=== PATIENT | male | born 1970 | race African-American/Black ===

== ENCOUNTER 2023-01-13 03:01 | Emergency (ER) | payer OTHER, SELFPAY ==
[~2023-01-13] VITALS: Ht 172.7 cm; Wt 83.2 kg
[~2023-01-13 03:01] MED LIST: NO MEDS
[2023-01-13 03:05] VITALS: TEMP 98
[2023-01-13] MEDS ORDERED: KETOROLAC TROMETHAMINE 60 MG/2 ML VIAL IM ONE (03:30)
[2023-01-13] MEDS ORDERED: HYDROCODONE/ACETAMINOPHEN 5-325 MG TABLET PO ONE (03:30)
[2023-01-13] MEDS ORDERED: BACITRACIN 0.9 GM PACKET OINTMENT TP ONE (03:30)
[2023-01-13 03:38] VITALS: BP 117/66; PULSE 88; RESP 20
[2023-01-13] MEDS ORDERED: IBUP-1554 PO (04:35)
[2023-01-13] MEDS ORDERED: BACI28.410 TP (04:35)
[2023-01-13] MEDS ORDERED: HYDR-4072 PO (04:35)
== END 2023-01-13 05:16 | disposition home or self-care (01) ==
LOC: EMS 03:04
DX: T23.232A Burn of second degree of multiple left fingers (nail), not including thumb, initial encounter (principal); T21.23XA Burn of second degree of upper back, initial encounter; T21.21XA Burn of second degree of chest wall, initial encounter; F17.210 Nicotine dependence, cigarettes, uncomplicated; Z98.890 Other specified postprocedural states
CPT/HCPCS: 99283; 16000; 96372; J1885

== ENCOUNTER 2023-01-23 06:38 | Emergency (ER) | payer OTHER ==
[~2023-01-23] VITALS: Ht 172.7 cm; Wt 83.0 kg
[~2023-01-23 06:38] MED LIST changes: +BACI28.410 TP; +HYDR-4072 PO; +IBUP-1554 PO
[2023-01-23 06:58] VITALS: TEMP 97.5
[2023-01-23 09:25] VITALS: BP 125/65; PULSE 85; RESP 14
== END 2023-01-23 09:39 | disposition home or self-care (01) ==
LOC: EMS 06:39
DX: M79.672 Pain in left foot (principal); M79.671 Pain in right foot; F17.210 Nicotine dependence, cigarettes, uncomplicated; Z98.890 Other specified postprocedural states
CPT/HCPCS: 99283; Z7502

== ENCOUNTER 2023-02-01 01:00 | Inpatient (IN) | payer MEDICAID, OTHER ==
[~2023-02-01] VITALS: Ht 176.8 cm; Wt 64.4 kg
[2023-02-01 01:42] LABS: PH,URINE DRUG SCREEN 5.5 (5.0-8.0)
[2023-02-01 01:50] LABS: ALCOHOL, URINE DRUG SCREEN NEGATIVE (NEGATIVE); AMPHET/METH SCREEN,URINE NEGATIVE (NEGATIVE); BARBITURATE SCREEN, URINE NEGATIVE (NEGATIVE); BENZODIAZEPINES SCREEN,URINE NEGATIVE (NEGATIVE); CANNABINOID SCREEN,URINE POSITIVE (NEGATIVE); COCAINE SCREEN,URINE NEGATIVE (NEGATIVE); METHADONE SCREEN, URINE NEGATIVE (NEGATIVE); OPIATE SCREEN,URINE NEGATIVE (NEGATIVE); PHENCYCLIDINE SCREEN,URINE NEGATIVE (NEGATIVE)
[2023-02-01 02:09] LABS: BASOPHILS % (AUTO) 0.8 % (0.0-2.0); EOSINOPHILS % (AUTO) 6.3 % (1.0-6.0); HEMATOCRIT 34.9 % (41-53); HEMOGLOBIN 11.7 g/dL (13.5-17.5); LYMPHOCYTES # (AUTO) 1.7 K/uL (1.0-4.8); LYMPHOCYTES % (AUTO) 37.9 % (22.0-44.0); MEAN CORPUSCULAR HEMOGLOBIN 29.9 pg (26.0-34.0); MEAN CORPUSCULAR HGB CONC 33.4 G/dL (31.0-37.0); MEAN CORPUSCULAR VOLUME 89 fL (80-100); MONOCYTES # (AUTO) 0.6 K/uL (0.1-1.0); MONOCYTES % (AUTO) 14.3 % (2.0-9.0); NEUTROPHILS # (AUTO) 1.8 K/uL (1.8-7.7); NEUTROPHILS % (AUTO) 40.7 % (40.0-70.0); PLATELET COUNT (AUTO) 398 K/uL (150-450); RED BLOOD CELL COUNT(AUTO) 3.91 MIL/uL (4.50-5.90); RED CELL DISTRIBUTION WIDTH 14.1 % (11.5-14.5); WHITE BLOOD COUNT (AUTO) 4.4 K/uL (4.5-11.0)
[2023-02-01 02:17] LABS: ANION GAP 7 mmol/L (8-16); CALCIUM, TOTAL 8.9 mg/dL (8.8-10.5); CARBON DIOXIDE 29 mmol/L (22-29); CHLORIDE 104 mmol/L (98-107); GLOMERULAR FILTR. RATE CALC > 60 mL/min (>60); GLUCOSE,RANDOM 89 mg/dL (70-110); POTASSIUM 3.8 mmol/L (3.5-5.1); SODIUM SERUM 140 mmol/L (136-145); UREA NITROGEN, BLOOD 16 mg/dL (7-18)
[2023-02-01 02:23] LABS: ALANINE AMINOTRANSFERASE 40 U/L (12-78); ALBUMIN 3.1 g/dL (3.4-5.0); ALKALINE PHOSPHATASE 109 U/L (46-116); ASPARTATE AMINOTRANSFERASE 54 U/L (15-37); BILIRUBIN,TOTAL 0.2 mg/dL (0.1-1.0); TOTAL PROTEIN, SERUM 6.7 g/dL (6.4-8.2)
[2023-02-01 02:31] LABS: ALCOHOL, BLOOD (SERUM) < 3 mg/dL (0-10)
[2023-02-01 05:01] LABS: COVID AG,FIA SOURCE NASAL SWAB
[2023-02-01] MEDS ORDERED: LORazepam 2 MG TABLET PO PRN (05:15)
[2023-02-01 05:27] LABS: SARS-COV2 (COVID) ANTIGEN,FIA Negative (Negative)
[2023-02-01 09:37] LABS: APPEARANCE,URINE CLEAR (CLEAR); BILIRUBIN,URINE NEGATIVE (NEGATIVE); COLOR,URINE LIGHT YELLOW (YELLOW); GLUCOSE, URINE (UA) NEGATIVE (NEGATIVE); KETONES,URINE NEGATIVE (NEGATIVE); LEUKOCYTE ESTERASE ,URINE NEGATIVE (NEGATIVE); NITRATE,URINE NEGATIVE (NEGATIVE); OCCULT BLOOD,URINE NEGATIVE (NEGATIVE); PROTEIN,URINE NEGATIVE (NEGATIVE); SPECIFIC GRAVITIY, URINE 1.015 (1.003-1.030)
[2023-02-01 13:24] VITALS: BP 110/70; PULSE 71; RESP 18; TEMP 97.4; O2SAT 98
[2023-02-01] MEDS ORDERED: TraMADol HCL 50 MG TABLET PO PRN (16:45)
[2023-02-01] MEDS ORDERED: IBUPROFEN 600 MG TABLET PO PRN (19:45)
[2023-02-01] MEDS ORDERED: OMEPRAZOLE 20 MG CAPSULE PO PRN (19:45)
[2023-02-01] MEDS ORDERED: DOCUSATE SODIUM 100 MG CAPSULE PO PRN (19:45)
[2023-02-01] MEDS ORDERED: BENZOCAINE/MENTHOL LOZENGE PO PRN (19:45)
[2023-02-01] MEDS ORDERED: CloNIDine HCL 0.1 MG TABLET PO PRN (19:45)
[2023-02-01] MEDS ORDERED: MAG HYDROX/AL HYDROX/SIMETH ES 30 ML SUSPENSION UDCUP PO PRN (19:45)
[2023-02-01] MEDS ORDERED: LOPERAMIDE HCL 2 MG CAPSULE PO PRN (19:45)
[2023-02-01] MEDS ORDERED: ALBUTEROL SULFATE HFA 90 MCG/PUFF 8 GM INHALER IH PRN (19:45)
[2023-02-01] MEDS ORDERED: PETROLATUM,WHITE 28 GM JELLY TP PRN (19:45)
[2023-02-01] MEDS ORDERED: BACITRACIN 28 GM OINTMENT TP PRN (19:45)
[2023-02-01] MEDS ORDERED: MAGNESIUM HYDROXIDE SUSPENSION 30 ML UDCUP PO PRN (19:45)
[2023-02-01] MEDS ORDERED: ONDANSETRON HCL 4 MG TABLET PO PRN (19:45)
[2023-02-01 20:14] VITALS: BP 108/76; PULSE 82; RESP 18; TEMP 97.5; O2SAT 95
[2023-02-02 08:24] VITALS: BP 115/58; PULSE 65; RESP 19; TEMP 97.7; O2SAT 97
[2023-02-02] MEDS: NICOTINE 21 MG/24 HOUR PATCH TD SCH (09:30)
[2023-02-02] MEDS: SILVER SULFADIAZINE 1% 25 GM CREAM TP SCH (09:59)
[2023-02-02 20:22] VITALS: BP 105/69; PULSE 67; RESP 18; TEMP 97.8; O2SAT 100
[2023-02-03 08:58] VITALS: BP 107/67; PULSE 68; RESP 17; TEMP 97.3; O2SAT 97
[2023-02-03] MEDS: NICOTINE 21 MG/24 HOUR PATCH TD SCH (09:08)
[2023-02-03] MEDS: SILVER SULFADIAZINE 1% 25 GM CREAM TP SCH (09:13)
[2023-02-03 17:59] VITALS: BP 105/67; PULSE 70; RESP 18; TEMP 91.7; O2SAT 100
[2023-02-03 20:23] VITALS: BP 106/65; PULSE 72; RESP 18; TEMP 97.1; O2SAT 99
[2023-02-03] MEDS: ZOLPIDEM TARTRATE 10 MG TABLET PO PRN (23:58)
[2023-02-04 08:17] VITALS: BP 110/69; PULSE 70; RESP 18; TEMP 97.3; O2SAT 99
[2023-02-04] MEDS: NICOTINE 21 MG/24 HOUR PATCH TD SCH (09:27)
[2023-02-04] MEDS: SILVER SULFADIAZINE 1% 25 GM CREAM TP SCH (09:32)
[2023-02-04 20:06] VITALS: BP 109/73; PULSE 78; RESP 19; TEMP 98.1; O2SAT 98
[2023-02-05 08:42] VITALS: BP 119/67; PULSE 60; RESP 18; TEMP 97.9; O2SAT 100
[2023-02-05] MEDS: NICOTINE 21 MG/24 HOUR PATCH TD SCH (08:44)
[2023-02-05] MEDS: SILVER SULFADIAZINE 1% 25 GM CREAM TP SCH (09:02)
[2023-02-05] MEDS: CITALOPRAM HYDROBROMIDE 20 MG TABLET PO SCH (16:45)
[2023-02-05] MEDS: ACETAMINOPHEN 325 MG TABLET PO PRN ×2 (19:30→23:32)
[2023-02-05 23:32] VITALS: BP 110/65; RESP 18; O2SAT 99
[2023-02-06 08:23] VITALS: BP 119/69; PULSE 75; RESP 18; TEMP 97.6; O2SAT 100
[2023-02-06] MEDS: CITALOPRAM HYDROBROMIDE 20 MG TABLET PO SCH (09:11)
[2023-02-06] MEDS: NICOTINE 21 MG/24 HOUR PATCH TD SCH (09:42)
[2023-02-06] MEDS: SILVER SULFADIAZINE 1% 25 GM CREAM TP SCH (10:08)
[2023-02-06] MEDS: HALOPERIDOL 5 MG TABLET PO PRN (11:07)
[2023-02-06 20:21] VITALS: BP 108/53; PULSE 52; RESP 19; TEMP 98; O2SAT 99
[2023-02-07] MEDS: ZOLPIDEM TARTRATE 10 MG TABLET PO PRN (00:08)
[2023-02-07 00:09] VITALS: BP 112/58; PULSE 59; RESP 17; TEMP 97.6; O2SAT 98
[2023-02-07] MEDS: ACETAMINOPHEN 325 MG TABLET PO PRN ×2 (00:09→20:31)
[2023-02-07 01:09] VITALS: RESP 18
[2023-02-07 08:17] VITALS: BP 112/61; PULSE 72; RESP 18; TEMP 97.8; O2SAT 95
[2023-02-07] MEDS: CITALOPRAM HYDROBROMIDE 20 MG TABLET PO SCH (08:51)
[2023-02-07] MEDS: SILVER SULFADIAZINE 1% 25 GM CREAM TP SCH (09:00)
[2023-02-07] MEDS: NICOTINE 21 MG/24 HOUR PATCH TD SCH (09:08)
[2023-02-07 20:21] VITALS: BP 127/80; PULSE 75; RESP 18; TEMP 98; O2SAT 97
[2023-02-08 08:47] VITALS: BP 104/69; PULSE 65; RESP 19; TEMP 97.3; O2SAT 96
[2023-02-08] MEDS: CITALOPRAM HYDROBROMIDE 20 MG TABLET PO SCH (09:09)
[2023-02-08] MEDS: NICOTINE 21 MG/24 HOUR PATCH TD SCH (09:09)
[2023-02-08] MEDS: SILVER SULFADIAZINE 1% 25 GM CREAM TP SCH (10:03)
[2023-02-08] MEDS ORDERED: CITA-144 PO (16:59)
[2023-02-08] MEDS: HALOPERIDOL 5 MG TABLET PO PRN (21:29)
[2023-02-08 21:47] VITALS: BP 117/65; PULSE 20; RESP 20; TEMP 97; O2SAT 65
== END 2023-02-09 08:30 | disposition home or self-care (01) | DRG 750 ==
LOC: EMS 01:01 → B2S 08:44
PROVIDERS: ADMIT Psychiatry & Neurology Psychiatry; ATTEND Psychiatry & Neurology Psychiatry
DX: F25.9 Schizoaffective disorder, unspecified (principal); R45.851 Suicidal ideations; F41.9 Anxiety disorder, unspecified; G47.00 Insomnia, unspecified; I10 Essential (primary) hypertension; Z20.822 Contact with and (suspected) exposure to COVID-19; T21.03XA Burn of unspecified degree of upper back, initial encounter; K21.9 Gastro-esophageal reflux disease without esophagitis; F12.10 Cannabis abuse, uncomplicated; X08.8XXA Exposure to other specified smoke, fire and flames, initial encounter; T21.01XA Burn of unspecified degree of chest wall, initial encounter; Y93.89 Activity, other specified; Y92.89 Other specified places as the place of occurrence of the external cause; Y99.8 Other external cause status; Z91.013 Allergy to seafood; Z59.00 Homelessness unspecified
CPT/HCPCS: 80053; 80307; 81003; 85025; 99285; G0480

== ENCOUNTER 2023-02-15 19:50 | Inpatient (IN) | payer MEDICAID ==
[~2023-02-15] VITALS: Ht 170.2 cm; Wt 71.7 kg
[~2023-02-15 19:50] MED LIST changes: -BACI28.410 TP; +CITA-144 PO; -HYDR-4072 PO; -IBUP-1554 PO; -NO MEDS
[2023-02-15] MEDS ORDERED: LORazepam 2 MG TABLET PO PRN (20:30)
[2023-02-15] MEDS ORDERED: HALOPERIDOL 5 MG TABLET PO PRN (20:30)
[2023-02-15 21:16] LABS: GLUCOMETER DEV NAME(LOC) POC.BV; POC SARS-COV2 AG, FIA NEGATIVE (NEGATIVE)
[2023-02-15 22:15] VITALS: BP 120/62; PULSE 70; RESP 18; TEMP 97.7
[2023-02-15 22:21] VITALS: BP 120/62; PULSE 70; RESP 18; TEMP 97.7
[2023-02-16] MEDS ORDERED: DOCUSATE SODIUM 100 MG CAPSULE PO PRN (06:00)
[2023-02-16] MEDS ORDERED: ALBUTEROL SULFATE HFA 90 MCG/PUFF 8 GM INHALER IH PRN (06:00)
[2023-02-16] MEDS ORDERED: MAGNESIUM HYDROXIDE SUSPENSION 30 ML UDCUP PO PRN (06:00)
[2023-02-16] MEDS ORDERED: PETROLATUM,WHITE 28 GM JELLY TP PRN (06:00)
[2023-02-16] MEDS ORDERED: BACITRACIN 28 GM OINTMENT TP PRN (06:00)
[2023-02-16] MEDS ORDERED: LOPERAMIDE HCL 2 MG CAPSULE PO PRN (06:00)
[2023-02-16] MEDS ORDERED: MAG HYDROX/ALUMINUM HYD/SIMETH ES 30 ML SUSPENSION UDCUP PO PRN (06:00)
[2023-02-16] MEDS ORDERED: ONDANSETRON HCL 4 MG TABLET PO PRN (06:00)
[2023-02-16] MEDS ORDERED: OMEPRAZOLE 20 MG CAPSULE PO PRN (06:00)
[2023-02-16] MEDS ORDERED: CloNIDine HCL 0.1 MG TABLET PO PRN (06:00)
[2023-02-16] MEDS ORDERED: BENZOCAINE/MENTHOL LOZENGE PO PRN (06:00)
[2023-02-16 08:18] LABS: EOSINOPHILS % (AUTO) 9.7 % (1.0-6.0); HEMATOCRIT 38.3 % (41-53); HEMOGLOBIN 12.6 g/dL (13.5-17.5); LYMPHOCYTES # (AUTO) 1.5 K/uL (1.0-4.8); LYMPHOCYTES % (AUTO) 40.7 % (22.0-44.0); MEAN CORPUSCULAR HEMOGLOBIN 29.7 pg (26.0-34.0); MEAN CORPUSCULAR HGB CONC 32.8 G/dL (31.0-37.0); MEAN CORPUSCULAR VOLUME 90 fL (80-100); MONOCYTES # (AUTO) 0.5 K/uL (0.1-1.0); MONOCYTES % (AUTO) 13.9 % (2.0-9.0); NEUTROPHILS # (AUTO) 1.3 K/uL (1.8-7.7); NEUTROPHILS % (AUTO) 34.7 % (40.0-70.0); PLATELET COUNT (AUTO) 301 K/uL (150-450); RED BLOOD CELL COUNT(AUTO) 4.23 MIL/uL (4.50-5.90); RED CELL DISTRIBUTION WIDTH 14.7 % (11.5-14.5); WHITE BLOOD COUNT (AUTO) 3.6 K/uL (4.5-11.0)
[2023-02-16 08:23] LABS: RBC MORPHOLOGY COMMENT NORMAL RBC MORPH
[2023-02-16 08:26] VITALS: BP 100/62; PULSE 76; RESP 18; TEMP 97.9
[2023-02-16 08:50] LABS: ALANINE AMINOTRANSFERASE 21 U/L (12-78); ALBUMIN 2.6 g/dL (3.4-5.0); ALKALINE PHOSPHATASE 86 U/L (46-116); ANION GAP 6 mmol/L (8-16); ASPARTATE AMINOTRANSFERASE 21 U/L (15-37); BILIRUBIN,TOTAL 0.2 mg/dL (0.1-1.0); CALCIUM, TOTAL 8.2 mg/dL (8.8-10.5); CARBON DIOXIDE 29 mmol/L (22-29); CHLORIDE 106 mmol/L (98-107); CHOL/HDL RATIO 2.5 (4.2-7.3); CHOLESTEROL 134 mg/dL (131-200); CREATININE 0.89 mg/dL (0.60-1.30); GLOMERULAR FILTR. RATE CALC > 60 mL/min (>60); GLUCOSE,RANDOM 82 mg/dL (70-110); HDL CHOLESTEROL 54 mg/dL (40-60); LDL CHOL (CALC.) 74 mg/dL (0-130); POTASSIUM 4.3 mmol/L (3.5-5.1); SODIUM SERUM 140 mmol/L (136-145); TOTAL PROTEIN, SERUM 6.4 g/dL (6.4-8.2); TRIGLYCERIDES 28 mg/dL (15-150); UREA NITROGEN, BLOOD 13 mg/dL (7-18)
[2023-02-16 09:42] LABS: FREE T4 (FREE THYROXINE) 0.94 ng/dL (0.76-1.46); T4 (THYROXINE) 5.6 mcg/dL (4.7-13.3); THYROID STIMULATING HORMONE 2.63 uIU/mL (0.36-3.74)
[2023-02-16] MEDS: CITALOPRAM HYDROBROMIDE 20 MG TABLET PO SCH (13:00)
[2023-02-16 20:03] VITALS: BP 106/66; PULSE 58; RESP 20; TEMP 97.6; O2SAT 99
[2023-02-17 08:52] VITALS: BP 109/76; PULSE 68; RESP 20; TEMP 97.5; O2SAT 99
[2023-02-17] MEDS: CITALOPRAM HYDROBROMIDE 20 MG TABLET PO SCH (08:59)
[2023-02-17 20:21] VITALS: BP 114/88; PULSE 80; RESP 18; TEMP 97.6; O2SAT 99
[2023-02-17] MEDS: ZOLPIDEM TARTRATE 10 MG TABLET PO PRN (23:35)
[2023-02-18 08:34] VITALS: BP 116/80; PULSE 80; RESP 18; TEMP 97.6; O2SAT 99
[2023-02-18] MEDS: CITALOPRAM HYDROBROMIDE 20 MG TABLET PO SCH (08:54)
[2023-02-18] MEDS: MUPIROCIN CALCIUM 2% 22 GM OINTMENT NASAL SCH (16:12)
[2023-02-18 18:13] VITALS: RESP 17
[2023-02-18] MEDS: IBUPROFEN 600 MG TABLET PO PRN ×2 (18:13→21:20)
[2023-02-18 19:13] VITALS: RESP 18
[2023-02-18 20:29] VITALS: BP 118/66; PULSE 69; RESP 2; TEMP 97.7; O2SAT 100
[2023-02-18] MEDS: ZOLPIDEM TARTRATE 10 MG TABLET PO PRN (21:20)
[2023-02-18 21:23] VITALS: BP 109/65; PULSE 65; RESP 20; O2SAT 95
[2023-02-19 00:07] VITALS: BP 109/65; PULSE 65; RESP 20; TEMP 97.5; O2SAT 95
[2023-02-19] MEDS: IBUPROFEN 600 MG TABLET PO PRN (00:17)
[2023-02-19 01:13] VITALS: RESP 18
[2023-02-19 08:43] VITALS: BP 107/60; PULSE 63; RESP 17; TEMP 98; O2SAT 99
[2023-02-19] MEDS: TERBINAFINE HCL 1% 30 GM CREAM TP SCH ×2 (09:24→16:51)
[2023-02-19] MEDS: CITALOPRAM HYDROBROMIDE 20 MG TABLET PO SCH (09:24)
[2023-02-19] MEDS: MUPIROCIN CALCIUM 2% 22 GM OINTMENT NASAL SCH ×2 (09:26→16:52)
[2023-02-19 20:18] VITALS: BP 111/71; PULSE 79; RESP 18; TEMP 98.5; O2SAT 97
[2023-02-19] MEDS: ACETAMINOPHEN 325 MG TABLET PO PRN (20:28)
[2023-02-19] MEDS: ZOLPIDEM TARTRATE 10 MG TABLET PO PRN (20:28)
[2023-02-19 20:29] VITALS: RESP 18
[2023-02-19 21:30] VITALS: RESP 18
[2023-02-20 09:06] VITALS: BP 106/59; PULSE 78; RESP 17; TEMP 97.8; O2SAT 98
[2023-02-20] MEDS: CITALOPRAM HYDROBROMIDE 20 MG TABLET PO SCH (09:59)
[2023-02-20] MEDS: MUPIROCIN CALCIUM 2% 22 GM OINTMENT NASAL SCH ×2 (10:00→17:25)
[2023-02-20] MEDS: TERBINAFINE HCL 1% 30 GM CREAM TP SCH ×2 (10:05→17:25)
[2023-02-20 20:38] VITALS: BP 112/70; PULSE 74; RESP 18; TEMP 98; O2SAT 98
[2023-02-20 21:39] VITALS: RESP 18
[2023-02-20] MEDS: ZOLPIDEM TARTRATE 10 MG TABLET PO PRN (21:52)
[2023-02-20] MEDS: ACETAMINOPHEN 325 MG TABLET PO PRN (21:53)
[2023-02-21] MEDS: CITALOPRAM HYDROBROMIDE 20 MG TABLET PO SCH (08:32)
[2023-02-21] MEDS: MUPIROCIN CALCIUM 2% 22 GM OINTMENT NASAL SCH ×2 (08:33→16:32)
[2023-02-21] MEDS: TERBINAFINE HCL 1% 30 GM CREAM TP SCH ×2 (08:33→16:32)
[2023-02-21 09:12] VITALS: BP 107/62; PULSE 67; RESP 17; TEMP 97.5; O2SAT 100
[2023-02-21 20:33] VITALS: BP 102/61; PULSE 61; RESP 18; TEMP 98.3; O2SAT 97
[2023-02-22] MEDS: CITALOPRAM HYDROBROMIDE 20 MG TABLET PO SCH (09:28)
[2023-02-22] MEDS: MUPIROCIN CALCIUM 2% 22 GM OINTMENT NASAL SCH ×2 (09:28→16:17)
[2023-02-22] MEDS: TERBINAFINE HCL 1% 30 GM CREAM TP SCH ×2 (09:28→16:17)
[2023-02-22 10:28] VITALS: BP 120/67; PULSE 63; RESP 17; TEMP 97.3; O2SAT 100
== END 2023-02-22 16:35 | disposition home or self-care (01) | DRG 750 ==
LOC: B2S 20:25
PROVIDERS: ADMIT Psychiatry & Neurology Psychiatry; ATTEND Psychiatry & Neurology Psychiatry
DX: F25.9 Schizoaffective disorder, unspecified (principal); F10.90 Alcohol use, unspecified, uncomplicated; F41.9 Anxiety disorder, unspecified; I10 Essential (primary) hypertension; K21.9 Gastro-esophageal reflux disease without esophagitis; Z20.822 Contact with and (suspected) exposure to COVID-19; G47.00 Insomnia, unspecified; F12.10 Cannabis abuse, uncomplicated; Z59.00 Homelessness unspecified; Z91.013 Allergy to seafood
CPT/HCPCS: 80053; 80061; 84436; 84439; 84443; 85025; 86592; 87081

== ENCOUNTER 2023-02-22 20:51 | Inpatient (IN) | payer MEDICAID ==
[~2023-02-22] VITALS: Ht 182.9 cm; Wt 75.0 kg
[2023-02-22] MEDS ORDERED: ZOLPIDEM TARTRATE 10 MG TABLET PO PRN (21:15)
[2023-02-22 21:36] LABS: GLUCOMETER DEV NAME(LOC) POC.BV; POC SARS-COV2 AG, FIA NEGATIVE (NEGATIVE)
[2023-02-22] MEDS ORDERED: INFLUENZA VIRUS VACCINE QVS 2023-24 (6MO+)/PF 60 MCG/0.5 ML SYRINGE IM. ONE (23:45)
[2023-02-23 00:29] VITALS: BP 120/67; PULSE 70; RESP 18; TEMP 96.7
[2023-02-23] MEDS ORDERED: ACETAMINOPHEN 325 MG TABLET PO PRN (05:15)
[2023-02-23] MEDS ORDERED: DOCUSATE SODIUM 100 MG CAPSULE PO PRN (05:15)
[2023-02-23] MEDS ORDERED: MAG HYDROX/ALUMINUM HYD/SIMETH ES 30 ML SUSPENSION UDCUP PO PRN (05:15)
[2023-02-23] MEDS ORDERED: MAGNESIUM HYDROXIDE SUSPENSION 30 ML UDCUP PO PRN (05:15)
[2023-02-23] MEDS ORDERED: BACITRACIN 28 GM OINTMENT TP PRN (05:15)
[2023-02-23] MEDS ORDERED: BENZOCAINE/MENTHOL LOZENGE PO PRN (05:15)
[2023-02-23] MEDS ORDERED: OMEPRAZOLE 20 MG CAPSULE PO PRN (05:15)
[2023-02-23] MEDS ORDERED: IBUPROFEN 600 MG TABLET PO PRN (05:15)
[2023-02-23] MEDS ORDERED: ONDANSETRON HCL 4 MG TABLET PO PRN (05:15)
[2023-02-23] MEDS ORDERED: PETROLATUM,WHITE 28 GM JELLY TP PRN (05:15)
[2023-02-23] MEDS ORDERED: CloNIDine HCL 0.1 MG TABLET PO PRN (05:15)
[2023-02-23] MEDS ORDERED: ALBUTEROL SULFATE HFA 90 MCG/PUFF 8 GM INHALER IH PRN (05:15)
[2023-02-23] MEDS ORDERED: LOPERAMIDE HCL 2 MG CAPSULE PO PRN (05:15)
[2023-02-23 05:30] VITALS: BP 120/76; PULSE 70; RESP 18; TEMP 97.6; O2SAT 100
[2023-02-23 08:34] VITALS: BP 100/66; PULSE 71; RESP 18; TEMP 98; O2SAT 100
[2023-02-23 08:52] LABS: BASOPHILS % (AUTO) 1.1 % (0.0-2.0); EOSINOPHILS % (AUTO) 3.9 % (1.0-6.0); HEMATOCRIT 39.4 % (41-53); HEMOGLOBIN 13.1 g/dL (13.5-17.5); LYMPHOCYTES # (AUTO) 1.9 K/uL (1.0-4.8); LYMPHOCYTES % (AUTO) 34.4 % (22.0-44.0); MEAN CORPUSCULAR HEMOGLOBIN 30.1 pg (26.0-34.0); MEAN CORPUSCULAR HGB CONC 33.1 G/dL (31.0-37.0); MEAN CORPUSCULAR VOLUME 91 fL (80-100); MONOCYTES # (AUTO) 0.8 K/uL (0.1-1.0); MONOCYTES % (AUTO) 15.1 % (2.0-9.0); NEUTROPHILS # (AUTO) 2.5 K/uL (1.8-7.7); NEUTROPHILS % (AUTO) 45.5 % (40.0-70.0); PLATELET COUNT (AUTO) 316 K/uL (150-450); RED BLOOD CELL COUNT(AUTO) 4.34 MIL/uL (4.50-5.90); RED CELL DISTRIBUTION WIDTH 14.6 % (11.5-14.5); WHITE BLOOD COUNT (AUTO) 5.4 K/uL (4.5-11.0)
[2023-02-23 09:20] LABS: HEMOGLOBIN A1C 5.4 % (3.8-5.6)
[2023-02-23 09:32] LABS: ALANINE AMINOTRANSFERASE 28 U/L (12-78); ALBUMIN 3.4 g/dL (3.4-5.0); ALKALINE PHOSPHATASE 93 U/L (46-116); ANION GAP 2 mmol/L (8-16); ASPARTATE AMINOTRANSFERASE 26 U/L (15-37); BILIRUBIN,TOTAL 0.4 mg/dL (0.1-1.0); CALCIUM, TOTAL 9.4 mg/dL (8.8-10.5); CARBON DIOXIDE 34 mmol/L (22-29); CHLORIDE 102 mmol/L (98-107); CHOL/HDL RATIO 2.2 (4.2-7.3); CHOLESTEROL 148 mg/dL (131-200); CREATININE 0.93 mg/dL (0.60-1.30); FREE T4 (FREE THYROXINE) 0.94 ng/dL (0.76-1.46); GLOMERULAR FILTR. RATE CALC > 60 mL/min (>60); GLUCOSE,RANDOM 110 mg/dL (70-110); HDL CHOLESTEROL 66 mg/dL (40-60); LDL CHOL (CALC.) 72 mg/dL (0-130); POTASSIUM 4.5 mmol/L (3.5-5.1); SODIUM SERUM 138 mmol/L (136-145); THYROID STIMULATING HORMONE 5.42 uIU/mL (0.36-3.74); TOTAL PROTEIN, SERUM 7.3 g/dL (6.4-8.2); TRIGLYCERIDES 51 mg/dL (15-150); UREA NITROGEN, BLOOD 12 mg/dL (7-18)
[2023-02-23] MEDS: OLANZapine 5 MG TABLET PO SCH (20:48)
[2023-02-23 22:28] VITALS: BP 99/60; PULSE 81; RESP 18; TEMP 97.9
[2023-02-24 00:15] VITALS: RESP 18
[2023-02-24 08:08] LABS: APPEARANCE,URINE CLEAR (CLEAR); BILIRUBIN,URINE NEGATIVE (NEGATIVE); COLOR,URINE LIGHT YELLOW (YELLOW); GLUCOSE, URINE (UA) NEGATIVE (NEGATIVE); KETONES,URINE NEGATIVE (NEGATIVE); LEUKOCYTE ESTERASE ,URINE NEGATIVE (NEGATIVE); NITRATE,URINE NEGATIVE (NEGATIVE); OCCULT BLOOD,URINE NEGATIVE (NEGATIVE); PROTEIN,URINE NEGATIVE (NEGATIVE); SPECIFIC GRAVITIY, URINE 1.013 (1.003-1.030); UROBILINOGEN,URINE <=1.0 mg/dL (<=1.0)
[2023-02-24 08:14] LABS: ALCOHOL, URINE DRUG SCREEN NEGATIVE (NEGATIVE); AMPHET/METH SCREEN,URINE NEGATIVE (NEGATIVE); BARBITURATE SCREEN, URINE NEGATIVE (NEGATIVE); BENZODIAZEPINES SCREEN,URINE NEGATIVE (NEGATIVE); CANNABINOID SCREEN,URINE POSITIVE (NEGATIVE); COCAINE SCREEN,URINE NEGATIVE (NEGATIVE); METHADONE SCREEN, URINE NEGATIVE (NEGATIVE); OPIATE SCREEN,URINE NEGATIVE (NEGATIVE); PHENCYCLIDINE SCREEN,URINE NEGATIVE (NEGATIVE)
[2023-02-24 08:49] VITALS: BP 118/63; PULSE 62; RESP 18; TEMP 97.7; O2SAT 97
[2023-02-24] MEDS: HALOPERIDOL 5 MG TABLET PO PRN (17:53)
[2023-02-24] MEDS: LORazepam 2 MG TABLET PO PRN (17:53)
[2023-02-24 20:41] VITALS: BP 125/72; PULSE 64; RESP 18; TEMP 98.1; O2SAT 96
[2023-02-24] MEDS: OLANZapine 5 MG TABLET PO SCH (20:47)
[2023-02-25 08:31] VITALS: BP 102/63; PULSE 64; RESP 17; TEMP 97.9; O2SAT 97
[2023-02-25 15:42] VITALS: BP 108/63; PULSE 67; RESP 18; TEMP 97.9; O2SAT 100
[2023-02-25] MEDS: HALOPERIDOL 5 MG TABLET PO PRN (15:49)
[2023-02-25] MEDS: LORazepam 2 MG TABLET PO PRN (15:49)
[2023-02-25] MEDS: OLANZapine 5 MG TABLET PO SCH (20:43)
[2023-02-25 22:28] VITALS: BP 111/76; PULSE 61; RESP 18; TEMP 97.7; O2SAT 99
[2023-02-26 10:01] VITALS: BP 115/78; PULSE 70; RESP 17; TEMP 97.7; O2SAT 100
[2023-02-26] MEDS ORDERED: LORazepam 2 MG/ML VIAL ONE (18:46)
[2023-02-26] MEDS ORDERED: DiphenhydrAMINE HCL 50 MG/ML VIAL ONE (18:46)
[2023-02-26] MEDS ORDERED: HALOPERIDOL LACTATE 5 MG/ML VIAL ONE (18:46)
[2023-02-26] MEDS ORDERED: DiphenhydrAMINE HCL 50 MG/ML VIAL IM ONE (19:00)
[2023-02-26] MEDS ORDERED: HALOPERIDOL LACTATE 5 MG/ML VIAL IM ONE (19:00)
[2023-02-26] MEDS ORDERED: LORazepam 2 MG/ML VIAL IM ONE (19:00)
[2023-02-26 20:32] VITALS: BP 122/71; PULSE 77; RESP 19; TEMP 97.8; O2SAT 100
[2023-02-26] MEDS: OLANZapine 5 MG TABLET PO SCH (21:23)
[2023-02-27 08:39] VITALS: BP 116/59; PULSE 76; RESP 17; TEMP 97.9; O2SAT 96
[2023-02-27] MEDS: OLANZapine 5 MG TABLET PO SCH (20:32)
[2023-02-27 22:33] VITALS: BP 120/70; PULSE 86; RESP 18; TEMP 97.2; O2SAT 86
[2023-02-28 08:39] VITALS: BP 112/65; PULSE 69; RESP 17; TEMP 97.7; O2SAT 100
[2023-02-28] MEDS: OLANZapine 5 MG TABLET PO SCH (20:16)
[2023-02-28 21:16] VITALS: BP 120/78; PULSE 75; RESP 18; TEMP 98; O2SAT 100
[2023-03-01 08:42] VITALS: BP 107/71; PULSE 60; RESP 18; TEMP 97.8; O2SAT 100
[2023-03-01] MEDS: LORazepam 2 MG TABLET PO PRN (14:07)
[2023-03-01] MEDS: HALOPERIDOL 5 MG TABLET PO PRN (14:07)
[2023-03-01] MEDS: OLANZapine 5 MG TABLET PO SCH (20:49)
[2023-03-01 21:02] VITALS: BP 108/66; PULSE 89; RESP 18; TEMP 97.4; O2SAT 100
[2023-03-02 08:38] VITALS: BP 106/67; PULSE 73; RESP 18; TEMP 97.8; O2SAT 100
[2023-03-02] MEDS ORDERED: OLAN7.5T22 PO (10:32)
== END 2023-03-02 15:20 | disposition home or self-care (01) | DRG 750 ==
LOC: B2S 21:16
PROVIDERS: ADMIT Psychiatry & Neurology Psychiatry; ATTEND Psychiatry & Neurology Psychiatry
DX: F25.9 Schizoaffective disorder, unspecified (principal); R45.851 Suicidal ideations; F32.9 Major depressive disorder, single episode, unspecified; F41.9 Anxiety disorder, unspecified; G47.00 Insomnia, unspecified; M54.9 Dorsalgia, unspecified; F19.10 Other psychoactive substance abuse, uncomplicated; I10 Essential (primary) hypertension; K21.9 Gastro-esophageal reflux disease without esophagitis; Z20.822 Contact with and (suspected) exposure to COVID-19; Z59.00 Homelessness unspecified; Z79.899 Other long term (current) drug therapy; Z91.013 Allergy to seafood
CPT/HCPCS: 80053; 80061; 80307; 81003; 83036; 84439; 84443; 85025; 87081; J1200; J1630; J2060

== ENCOUNTER 2023-03-17 10:30 | Inpatient (IN) | payer MEDICAID ==
[~2023-03-17] VITALS: Ht 170.2 cm; Wt 80.4 kg
[~2023-03-17 10:30] MED LIST changes: -CITA-144 PO; +OLAN7.5T22 PO
[2023-03-17] MEDS ORDERED: ZOLPIDEM TARTRATE 10 MG TABLET PO PRN (11:30)
[2023-03-17] MEDS ORDERED: LORazepam 2 MG TABLET PO PRN (11:30)
[2023-03-17] MEDS ORDERED: HALOPERIDOL 5 MG TABLET PO PRN (11:30)
[2023-03-17] MEDS ORDERED: ASPI-1451 PO (12:48)
[2023-03-17] MEDS ORDERED: CLOT15CR23 TP (12:48)
[2023-03-17] MEDS ORDERED: OLAN20TA35 PO (12:48)
[2023-03-17] MEDS ORDERED: IBUP-2070 PO (12:48)
[2023-03-17] MEDS ORDERED: CEPH500C2 PO (12:48)
[2023-03-17 14:42] VITALS: BP 93/62; PULSE 62; RESP 16; TEMP 97.9; O2SAT 99
[2023-03-17 15:31] LABS: GLUCOMETER DEV NAME(LOC) POC.BV; POC SARS-COV2 AG, FIA NEGATIVE (NEGATIVE)
[2023-03-17 15:31] LABS: GLUCOMETER DEV NAME(LOC) POC.BV; POC SARS-COV2 AG, FIA NEGATIVE (NEGATIVE)
[2023-03-17] MEDS ORDERED: INFLUENZA VIRUS VACCINE QVS 2023-24 (6MO+)/PF 60 MCG/0.5 ML SYRINGE IM. ONE (16:00)
[2023-03-17 20:17] VITALS: BP 105/63; PULSE 75; RESP 16; TEMP 97.9; O2SAT 99
[2023-03-18 07:36] LABS: EOSINOPHILS % (AUTO) 11.7 % (1.0-6.0); HEMATOCRIT 35.8 % (41-53); HEMOGLOBIN 11.8 g/dL (13.5-17.5); LYMPHOCYTES # (AUTO) 1.7 K/uL (1.0-4.8); MEAN CORPUSCULAR HEMOGLOBIN 29.4 pg (26.0-34.0); MEAN CORPUSCULAR HGB CONC 32.8 G/dL (31.0-37.0); MEAN CORPUSCULAR VOLUME 90 fL (80-100); MONOCYTES # (AUTO) 0.4 K/uL (0.1-1.0); MONOCYTES % (AUTO) 11.1 % (2.0-9.0); NEUTROPHILS # (AUTO) 1.1 K/uL (1.8-7.7); NEUTROPHILS % (AUTO) 29.2 % (40.0-70.0); PLATELET COUNT (AUTO) 326 K/uL (150-450); RED CELL DISTRIBUTION WIDTH 14.1 % (11.5-14.5); WHITE BLOOD COUNT (AUTO) 3.6 K/uL (4.5-11.0)
[2023-03-18 07:45] LABS: HEMOGLOBIN A1C 5.5 % (3.8-5.6)
[2023-03-18 08:03] LABS: ALANINE AMINOTRANSFERASE 23 U/L (12-78); ALBUMIN 2.7 g/dL (3.4-5.0); ALKALINE PHOSPHATASE 70 U/L (46-116); ANION GAP 5 mmol/L (8-16); ASPARTATE AMINOTRANSFERASE 32 U/L (15-37); BILIRUBIN,TOTAL 0.4 mg/dL (0.1-1.0); CALCIUM, TOTAL 8.6 mg/dL (8.8-10.5); CARBON DIOXIDE 29 mmol/L (22-29); CHLORIDE 108 mmol/L (98-107); CHOL/HDL RATIO 2.6 (4.2-7.3); CHOLESTEROL 132 mg/dL (131-200); CREATININE 0.91 mg/dL (0.60-1.30); GLOMERULAR FILTR. RATE CALC > 60 mL/min (>60); GLUCOSE,RANDOM 89 mg/dL (70-110); HDL CHOLESTEROL 51 mg/dL (40-60); LDL CHOL (CALC.) 72 mg/dL (0-130); POTASSIUM 4.3 mmol/L (3.5-5.1); SODIUM SERUM 142 mmol/L (136-145); THYROID STIMULATING HORMONE 1.44 uIU/mL (0.36-3.74); TOTAL PROTEIN, SERUM 6.3 g/dL (6.4-8.2); TRIGLYCERIDES 47 mg/dL (15-150); UREA NITROGEN, BLOOD 11 mg/dL (7-18)
[2023-03-18 14:45] VITALS: BP 132/73; PULSE 75; RESP 18; TEMP 97.5; O2SAT 98
[2023-03-18 20:15] VITALS: BP 109/56; PULSE 54; RESP 17; TEMP 98; O2SAT 100
[2023-03-19 08:52] VITALS: BP 109/70; PULSE 100; RESP 17; TEMP 97.7; O2SAT 95
[2023-03-19] MEDS ORDERED: OMEPRAZOLE 20 MG CAPSULE PO PRN (10:00)
[2023-03-19] MEDS ORDERED: MAG HYDROX/ALUMINUM HYD/SIMETH ES 30 ML SUSPENSION UDCUP PO PRN (10:00)
[2023-03-19] MEDS ORDERED: BENZOCAINE/MENTHOL LOZENGE PO PRN (10:00)
[2023-03-19] MEDS ORDERED: CloNIDine HCL 0.1 MG TABLET PO PRN (10:00)
[2023-03-19] MEDS ORDERED: LOPERAMIDE HCL 2 MG CAPSULE PO PRN (10:00)
[2023-03-19] MEDS ORDERED: PETROLATUM,WHITE 28 GM JELLY TP PRN (10:00)
[2023-03-19] MEDS ORDERED: DOCUSATE SODIUM 100 MG CAPSULE PO PRN (10:00)
[2023-03-19] MEDS ORDERED: ACETAMINOPHEN 325 MG TABLET PO PRN (10:00)
[2023-03-19] MEDS ORDERED: ALBUTEROL SULFATE HFA 90 MCG/PUFF 8 GM INHALER IH PRN (10:00)
[2023-03-19] MEDS ORDERED: MAGNESIUM HYDROXIDE SUSPENSION 30 ML UDCUP PO PRN (10:00)
[2023-03-19] MEDS ORDERED: ONDANSETRON HCL 4 MG TABLET PO PRN (10:00)
[2023-03-19] MEDS ORDERED: BACITRACIN 28 GM OINTMENT TP PRN (10:00)
[2023-03-19 12:39] VITALS: RESP 17
[2023-03-19] MEDS: IBUPROFEN 600 MG TABLET PO PRN ×2 (12:39→21:51)
[2023-03-19 13:39] VITALS: RESP 18
[2023-03-19 20:19] VITALS: BP 105/68; PULSE 63; RESP 18; TEMP 96.7; O2SAT 99
[2023-03-19 21:45] VITALS: RESP 17
[2023-03-19] MEDS: OLANZapine 10 MG TABLET PO SCH (21:50)
[2023-03-19] MEDS: CEPHALEXIN MONOHYDRATE 500 MG CAPSULE PO SCH (22:15)
[2023-03-20 08:26] VITALS: BP 106/59; PULSE 70; RESP 18; TEMP 97.5; O2SAT 100
[2023-03-20] MEDS: MULTIVITAMINS WITH IRON TABLET PO SCH (09:37)
[2023-03-20] MEDS: CEPHALEXIN MONOHYDRATE 500 MG CAPSULE PO SCH ×4 (09:39→21:09)
[2023-03-20 20:23] VITALS: BP 112/64; PULSE 81; RESP 18; TEMP 97.7; O2SAT 96
[2023-03-20] MEDS: OLANZapine 10 MG TABLET PO SCH (21:09)
[2023-03-21 09:00] VITALS: BP 135/76; PULSE 97; RESP 18; TEMP 96.1; O2SAT 100
[2023-03-21] MEDS: MULTIVITAMINS WITH IRON TABLET PO SCH (09:25)
[2023-03-21] MEDS: CEPHALEXIN MONOHYDRATE 500 MG CAPSULE PO SCH ×4 (09:26→20:56)
[2023-03-21 20:51] VITALS: BP 107/64; PULSE 72; RESP 18; TEMP 97.7
[2023-03-21] MEDS: OLANZapine 10 MG TABLET PO SCH (20:56)
[2023-03-22 08:35] VITALS: BP 100/60; PULSE 76; RESP 17; TEMP 97.7; O2SAT 100
[2023-03-22] MEDS: MULTIVITAMINS WITH IRON TABLET PO SCH (08:40)
[2023-03-22] MEDS: CEPHALEXIN MONOHYDRATE 500 MG CAPSULE PO SCH ×4 (08:41→20:10)
[2023-03-22] MEDS: OLANZapine 10 MG TABLET PO SCH (20:10)
[2023-03-22 20:17] VITALS: BP 106/72; PULSE 85; RESP 18; TEMP 98.1; O2SAT 97
[2023-03-23] MEDS: MULTIVITAMINS WITH IRON TABLET PO SCH (08:18)
[2023-03-23] MEDS: CEPHALEXIN MONOHYDRATE 500 MG CAPSULE PO SCH ×4 (08:18→20:12)
[2023-03-23 08:52] VITALS: BP 113/66; PULSE 86; RESP 18; TEMP 97.4; O2SAT 98
[2023-03-23] MEDS: OLANZapine 10 MG TABLET PO SCH (20:12)
[2023-03-23 20:13] VITALS: BP 127/69; PULSE 60; RESP 18; TEMP 97.3; O2SAT 100
[2023-03-24] MEDS: CEPHALEXIN MONOHYDRATE 500 MG CAPSULE PO SCH ×4 (08:06→20:06)
[2023-03-24] MEDS: MULTIVITAMINS WITH IRON TABLET PO SCH (08:06)
[2023-03-24 09:44] VITALS: BP 122/70; PULSE 68; RESP 17; TEMP 97.6; O2SAT 100
[2023-03-24] MEDS: OLANZapine 10 MG TABLET PO SCH (20:05)
[2023-03-24 20:38] VITALS: BP 142/80; PULSE 69; RESP 18; TEMP 97.8; O2SAT 98
[2023-03-25 08:34] VITALS: BP 119/72; PULSE 60; RESP 17; TEMP 96.3; O2SAT 100
[2023-03-25] MEDS: CEPHALEXIN MONOHYDRATE 500 MG CAPSULE PO SCH ×4 (08:34→20:03)
[2023-03-25] MEDS: MULTIVITAMINS WITH IRON TABLET PO SCH (08:34)
[2023-03-25] MEDS: OLANZapine 10 MG TABLET PO SCH (20:04)
[2023-03-25 20:15] VITALS: BP 128/87; PULSE 87; RESP 18; TEMP 97.8; O2SAT 98
[2023-03-26 08:00] VITALS: BP 107/68; PULSE 75; RESP 17; TEMP 97.7; O2SAT 100
[2023-03-26] MEDS: MULTIVITAMINS WITH IRON TABLET PO SCH (08:17)
[2023-03-26] MEDS: CEPHALEXIN MONOHYDRATE 500 MG CAPSULE PO SCH ×3 (08:17→16:13)
== END 2023-03-26 16:25 | disposition home or self-care (01) | DRG 750 ==
LOC: B3A 11:48 → B2S 03-18 15:44
PROVIDERS: ADMIT Psychiatry & Neurology Psychiatry; ATTEND Psychiatry & Neurology Psychiatry
DX: F25.9 Schizoaffective disorder, unspecified (principal); F10.90 Alcohol use, unspecified, uncomplicated; F41.9 Anxiety disorder, unspecified; G47.00 Insomnia, unspecified; I10 Essential (primary) hypertension; Z20.822 Contact with and (suspected) exposure to COVID-19; K21.9 Gastro-esophageal reflux disease without esophagitis; F12.10 Cannabis abuse, uncomplicated; Z59.00 Homelessness unspecified
CPT/HCPCS: 80053; 80061; 83036; 84439; 84443; 85025; 87081

== ENCOUNTER 2023-04-09 23:26 | Inpatient (IN) | payer MEDICAID ==
[~2023-04-09] VITALS: Ht 170.2 cm; Wt 84.4 kg
[~2023-04-09 23:26] MED LIST changes: +OLAN20TA35 PO; -OLAN7.5T22 PO
[2023-04-10] MEDS ORDERED: ZOLPIDEM TARTRATE 10 MG TABLET PO PRN (04:45)
[2023-04-10] MEDS ORDERED: HALOPERIDOL 5 MG TABLET PO PRN (04:45)
[2023-04-10] MEDS ORDERED: LORazepam 2 MG TABLET PO PRN (04:45)
[2023-04-10 04:56] LABS: GLUCOMETER DEV NAME(LOC) POC.BV; POC SARS-COV2 AG, FIA NEGATIVE (NEGATIVE)
[2023-04-10 05:48] VITALS: BP 111/65; PULSE 70; RESP 18; TEMP 97.4
[2023-04-10] MEDS ORDERED: INFLUENZA VIRUS VACCINE QVS 2023-24 (6MO+)/PF 60 MCG/0.5 ML SYRINGE IM. ONE (06:15)
[2023-04-10] MEDS ORDERED: PNEUMOCOCCAL VACCINE POLYVALENT 0.5 ML SYRINGE [PPSV23] IM. ONE (06:15)
[2023-04-10 08:53] VITALS: BP 116/72; PULSE 78; RESP 18; TEMP 97.5; O2SAT 97
[2023-04-10] MEDS ORDERED: BACITRACIN 28 GM OINTMENT TP PRN (19:45)
[2023-04-10] MEDS ORDERED: CloNIDine HCL 0.1 MG TABLET PO PRN (19:45)
[2023-04-10] MEDS ORDERED: BENZOCAINE/MENTHOL LOZENGE PO PRN (19:45)
[2023-04-10] MEDS ORDERED: ONDANSETRON HCL 4 MG TABLET PO PRN (19:45)
[2023-04-10] MEDS ORDERED: DOCUSATE SODIUM 100 MG CAPSULE PO PRN (19:45)
[2023-04-10] MEDS ORDERED: IBUPROFEN 600 MG TABLET PO PRN (19:45)
[2023-04-10] MEDS ORDERED: OMEPRAZOLE 20 MG CAPSULE PO PRN (19:45)
[2023-04-10] MEDS ORDERED: LOPERAMIDE HCL 2 MG CAPSULE PO PRN (19:45)
[2023-04-10] MEDS ORDERED: ALBUTEROL SULFATE HFA 90 MCG/PUFF 8 GM INHALER IH PRN (19:45)
[2023-04-10] MEDS ORDERED: MAGNESIUM HYDROXIDE SUSPENSION 30 ML UDCUP PO PRN (19:45)
[2023-04-10] MEDS ORDERED: PETROLATUM,WHITE 28 GM JELLY TP PRN (19:45)
[2023-04-10] MEDS ORDERED: ACETAMINOPHEN 325 MG TABLET PO PRN (19:45)
[2023-04-10] MEDS ORDERED: MAG HYDROX/ALUMINUM HYD/SIMETH ES 30 ML SUSPENSION UDCUP PO PRN (19:45)
[2023-04-10 20:27] VITALS: BP 100/66; PULSE 61; RESP 20; TEMP 98.1; O2SAT 98
[2023-04-10] MEDS: OLANZapine 10 MG TABLET PO SCH (20:53)
[2023-04-11 08:03] LABS: HEMOGLOBIN 11.9 g/dL (13.5-17.5); LYMPHOCYTES # (AUTO) 1.7 K/uL (1.0-4.8); LYMPHOCYTES % (AUTO) 50.5 % (22.0-44.0); MEAN CORPUSCULAR HEMOGLOBIN 29.4 pg (26.0-34.0); MEAN CORPUSCULAR VOLUME 89 fL (80-100); MONOCYTES # (AUTO) 0.6 K/uL (0.1-1.0); MONOCYTES % (AUTO) 18.2 % (2.0-9.0); NEUTROPHILS # (AUTO) 0.4 K/uL (1.8-7.7); PLATELET COUNT (AUTO) 238 K/uL (150-450); RED BLOOD CELL COUNT(AUTO) 4.04 MIL/uL (4.50-5.90); RED CELL DISTRIBUTION WIDTH 13.9 % (11.5-14.5); WHITE BLOOD COUNT (AUTO) 3.4 K/uL (4.5-11.0)
[2023-04-11 08:05] LABS: EOSINOPHILS % (AUTO) 17.3 % (1.0-6.0)
[2023-04-11 08:29] LABS: ALANINE AMINOTRANSFERASE 71 U/L (12-78); ALKALINE PHOSPHATASE 61 U/L (46-116); ANION GAP 3 mmol/L (8-16); ASPARTATE AMINOTRANSFERASE 28 U/L (15-37); BILIRUBIN,TOTAL 0.3 mg/dL (0.1-1.0); CALCIUM, TOTAL 8.2 mg/dL (8.8-10.5); CARBON DIOXIDE 28 mmol/L (22-29); CHLORIDE 107 mmol/L (98-107); CHOL/HDL RATIO 3.1 (4.2-7.3); CHOLESTEROL 156 mg/dL (131-200); CREATININE 0.85 mg/dL (0.60-1.30); FREE T4 (FREE THYROXINE) 0.97 ng/dL (0.76-1.46); GLOMERULAR FILTR. RATE CALC > 60 mL/min (>60); GLUCOSE,RANDOM 99 mg/dL (70-110); HDL CHOLESTEROL 50 mg/dL (40-60); LDL CHOL (CALC.) 90 mg/dL (0-130); POTASSIUM 4.5 mmol/L (3.5-5.1); SODIUM SERUM 138 mmol/L (136-145); T4 (THYROXINE) 7.1 mcg/dL (4.7-13.3); THYROID STIMULATING HORMONE 2.26 uIU/mL (0.36-3.74); TOTAL PROTEIN, SERUM 6.9 g/dL (6.4-8.2); TRIGLYCERIDES 78 mg/dL (15-150); UREA NITROGEN, BLOOD 15 mg/dL (7-18)
[2023-04-11 08:31] LABS: PLATELET MORPHOLOGY COMMENT GIANT PLTS PRESENT
[2023-04-11 08:32] LABS: HEMOGLOBIN A1C 5.6 % (3.8-5.6)
[2023-04-11 08:41] VITALS: BP 103/58; PULSE 60; RESP 18; TEMP 98.2; O2SAT 100
[2023-04-11] MEDS: OLANZapine 10 MG TABLET PO SCH (20:18)
[2023-04-11 21:44] VITALS: BP 110/69; PULSE 68; RESP 18; TEMP 98.1; O2SAT 99
[2023-04-12 09:44] VITALS: BP 98/71; PULSE 74; RESP 18; TEMP 98.4; O2SAT 98
== END 2023-04-12 14:45 | disposition home or self-care (01) | DRG 750 ==
LOC: B2S 04-10 05:11
PROVIDERS: ADMIT Psychiatry & Neurology Psychiatry; ATTEND Psychiatry & Neurology Psychiatry
DX: F25.9 Schizoaffective disorder, unspecified (principal); R45.851 Suicidal ideations; F10.90 Alcohol use, unspecified, uncomplicated; I10 Essential (primary) hypertension; F41.9 Anxiety disorder, unspecified; K21.9 Gastro-esophageal reflux disease without esophagitis; G47.00 Insomnia, unspecified; F12.10 Cannabis abuse, uncomplicated; Z20.822 Contact with and (suspected) exposure to COVID-19
CPT/HCPCS: 80053; 80061; 83036; 84436; 84439; 84443; 85025; 86592; 87081; 90686

== ENCOUNTER 2023-04-28 11:19 | Inpatient (IN) | payer MEDICAID, OTHER ==
[~2023-04-28] VITALS: Ht 172.7 cm; Wt 76.4 kg
[2023-04-28 12:17] LABS: BASOPHILS % (AUTO) 1.5 % (0.0-2.0); EOSINOPHILS % (AUTO) 6.3 % (1.0-6.0); HEMOGLOBIN 13.2 g/dL (13.5-17.5); LYMPHOCYTES # (AUTO) 1.2 K/uL (1.0-4.8); LYMPHOCYTES % (AUTO) 36.3 % (22.0-44.0); MEAN CORPUSCULAR HEMOGLOBIN 29.9 pg (26.0-34.0); MEAN CORPUSCULAR HGB CONC 32.9 G/dL (31.0-37.0); MEAN CORPUSCULAR VOLUME 91 fL (80-100); MONOCYTES # (AUTO) 0.3 K/uL (0.1-1.0); MONOCYTES % (AUTO) 8.4 % (2.0-9.0); NEUTROPHILS # (AUTO) 1.6 K/uL (1.8-7.7); NEUTROPHILS % (AUTO) 47.5 % (40.0-70.0); PLATELET COUNT (AUTO) 316 K/uL (150-450); RED BLOOD CELL COUNT(AUTO) 4.41 MIL/uL (4.50-5.90); WHITE BLOOD COUNT (AUTO) 3.4 K/uL (4.5-11.0)
[2023-04-28 12:22] LABS: ANION GAP 10 mmol/L (8-16); CALCIUM, TOTAL 9.3 mg/dL (8.8-10.5); CARBON DIOXIDE 25 mmol/L (22-29); CHLORIDE 106 mmol/L (98-107); CREATININE 0.96 mg/dL (0.60-1.30); GLOMERULAR FILTR. RATE CALC > 60 mL/min (>60); GLUCOSE,RANDOM 86 mg/dL (70-110); POTASSIUM 4.1 mmol/L (3.5-5.1); SODIUM SERUM 141 mmol/L (136-145); UREA NITROGEN, BLOOD 10 mg/dL (7-18)
[2023-04-28 12:29] LABS: ALANINE AMINOTRANSFERASE 20 U/L (12-78); ALKALINE PHOSPHATASE 74 U/L (46-116); ASPARTATE AMINOTRANSFERASE 28 U/L (15-37); BILIRUBIN,TOTAL 0.4 mg/dL (0.1-1.0)
[2023-04-28 12:41] LABS: ALCOHOL, BLOOD (SERUM) < 3 mg/dL (0-10)
[2023-04-28] MEDS ORDERED: ZOLPIDEM TARTRATE 10 MG TABLET PO PRN (15:15)
[2023-04-28] MEDS ORDERED: LORazepam 2 MG TABLET PO PRN (15:15)
[2023-04-28] MEDS ORDERED: HALOPERIDOL 5 MG TABLET PO PRN (15:15)
[2023-04-28 17:36] LABS: ALCOHOL, URINE DRUG SCREEN NEGATIVE (NEGATIVE); AMPHET/METH SCREEN,URINE POSITIVE (NEGATIVE); BARBITURATE SCREEN, URINE NEGATIVE (NEGATIVE); BENZODIAZEPINES SCREEN,URINE NEGATIVE (NEGATIVE); CANNABINOID SCREEN,URINE POSITIVE (NEGATIVE); COCAINE SCREEN,URINE NEGATIVE (NEGATIVE); METHADONE SCREEN, URINE NEGATIVE (NEGATIVE); OPIATE SCREEN,URINE NEGATIVE (NEGATIVE); PHENCYCLIDINE SCREEN,URINE NEGATIVE (NEGATIVE)
[2023-04-28 17:51] LABS: COVID AG,FIA SOURCE NASAL SWAB
[2023-04-28 18:09] LABS: SARS-COV2 (COVID) ANTIGEN,FIA Negative (Negative)
[2023-04-29 00:06] LABS: GLUCOMETER DEV NAME(LOC) ER.6; GLUCOSE,POINT OF CARE 125 MG/DL (70-110)
[2023-04-29] MEDS ORDERED: CloNIDine HCL 0.1 MG TABLET PO PRN (16:15)
[2023-04-29] MEDS ORDERED: ACETAMINOPHEN 325 MG TABLET PO PRN (16:15)
[2023-04-29] MEDS ORDERED: ONDANSETRON HCL 4 MG TABLET PO PRN (16:15)
[2023-04-29] MEDS ORDERED: DOCUSATE SODIUM 100 MG CAPSULE PO PRN (16:15)
[2023-04-29] MEDS ORDERED: MAGNESIUM HYDROXIDE SUSPENSION 30 ML UDCUP PO PRN (16:15)
[2023-04-29] MEDS ORDERED: BENZOCAINE/MENTHOL LOZENGE PO PRN (16:15)
[2023-04-29] MEDS ORDERED: LOPERAMIDE HCL 2 MG CAPSULE PO PRN (16:15)
[2023-04-29] MEDS ORDERED: MAG HYDROX/ALUMINUM HYD/SIMETH ES 30 ML SUSPENSION UDCUP PO PRN (16:15)
[2023-04-29] MEDS ORDERED: BACITRACIN 28 GM OINTMENT TP PRN (16:15)
[2023-04-29] MEDS ORDERED: PETROLATUM,WHITE 28 GM JELLY TP PRN (16:15)
[2023-04-29] MEDS ORDERED: OMEPRAZOLE 20 MG CAPSULE PO PRN (16:15)
[2023-04-29] MEDS ORDERED: ALBUTEROL SULFATE HFA 90 MCG/PUFF 8 GM INHALER IH PRN (16:15)
[2023-04-29] MEDS: OLANZapine 10 MG TABLET PO SCH (20:29)
[2023-04-30] MEDS ORDERED: INFLUENZA VIRUS VACCINE QVS 2023-24 (6MO+)/PF 60 MCG/0.5 ML SYRINGE IM. ONE (07:00)
[2023-04-30] MEDS: IBUPROFEN 600 MG TABLET PO PRN (12:26)
[2023-04-30 20:28] VITALS: BP 130/95; PULSE 67; RESP 17; TEMP 97.8; O2SAT 99
[2023-04-30] MEDS: OLANZapine 10 MG TABLET PO SCH (20:36)
[2023-04-30 21:25] VITALS: RESP 17
[2023-05-01 08:48] VITALS: BP 101/60; PULSE 65; RESP 19; TEMP 97.9; O2SAT 98
[2023-05-01 09:00] VITALS: BP 101/60; PULSE 65; RESP 19; TEMP 97.9; O2SAT 98
[2023-05-01 21:06] VITALS: BP 111/62; PULSE 71; RESP 17; TEMP 98; O2SAT 98
[2023-05-01] MEDS: OLANZapine 10 MG TABLET PO SCH (21:45)
[2023-05-02 08:29] VITALS: BP 108/63; PULSE 69; RESP 17; TEMP 97.5; O2SAT 100
[2023-05-02] MEDS: IBUPROFEN 600 MG TABLET PO PRN (15:56)
[2023-05-02 15:59] VITALS: BP 104/71; PULSE 54; RESP 16; TEMP 97.2; O2SAT 100
== END 2023-05-02 17:40 | disposition home or self-care (01) | DRG 750 ==
LOC: EMS 11:22 → B2S 04-29 09:21
PROVIDERS: ADMIT Psychiatry & Neurology Psychiatry; ATTEND Psychiatry & Neurology Psychiatry
DX: F25.9 Schizoaffective disorder, unspecified (principal); F10.90 Alcohol use, unspecified, uncomplicated; F19.10 Other psychoactive substance abuse, uncomplicated; F41.9 Anxiety disorder, unspecified; I10 Essential (primary) hypertension; Z20.822 Contact with and (suspected) exposure to COVID-19; K21.9 Gastro-esophageal reflux disease without esophagitis; G47.00 Insomnia, unspecified; F32.9 Major depressive disorder, single episode, unspecified
CPT/HCPCS: 80053; 80307; 82962; 85025; 87081; 93005; G0480